=== PATIENT | female | born 1975 | race African-American/Black ===

== ENCOUNTER → 2017-04-10 | Outpatient (CLI) | payer OTHER ==
[2017-04-10 15:33] LABS: ADD MAN DIFF? NO
[2017-04-10 15:37] LABS: BASO % 1 % (0-3); EOS # 0.1 x10^3/uL (0.0-0.7); EOS % 1 % (0-3); HEMATOCRIT 37.3 % (36.0-47.0); HEMOGLOBIN 11.9 g/dL (12.0-15.5); LYMPH # 1.6 x10^3/uL (1.0-4.8); LYMPH % 39 % (24-48); MEAN CORPUSCULAR HEMOGLOBIN 22 pg (25-35); MEAN CORPUSCULAR HGB CONC 32 g/dL (31-37); MEAN CORPUSCULAR VOLUME 69 fL (79-100); MONO # 0.5 x10^3/uL (0.0-1.1); MONO % 12 % (0-9); NEUT # 1.9 x10^3uL (1.8-7.7); NEUT % 47 % (31-73); PLATELET COUNT 225 x10^3/uL (140-400); RED BLOOD COUNT 5.39 x10^6/uL (3.50-5.40); RED CELL DISTRIBUTION WIDTH 14.1 % (11.5-14.5); WHITE BLOOD COUNT 4.1 x10^3/uL (4.0-11.0)
[2017-04-10 15:57] LABS: ALBUMIN 3.8 g/dL (3.4-5.0); ALK PHOS 64 U/L (46-116); ALT (SGPT) 16 U/L (14-59); ANION GAP 8 (6-14); AST (SGOT) 11 U/L (15-37); BLOOD UREA NITROGEN 7 mg/dL (7-20); BUN/CREATININE RATIO 10 (6-20); CALCIUM 8.6 mg/dL (8.5-10.1); CARBON DIOXIDE 29 mmol/L (21-32); CHLORIDE 103 mmol/L (98-107); CHOLESTEROL 145 mg/dL (0-200); CHOLESTEROL/HDL RATIO 1.6; CREATININE 0.7 mg/dL (0.6-1.0); GFR 112.7; GLUCOSE 90 mg/dL (70-99); HDLC 89 mg/dL (40-60); LDLC 51 mg/dL (0-100); NON-HDL CHOLESTEROL 56 mg/dL (0-129); POTASSIUM 3.8 mmol/L (3.5-5.1); SODIUM 140 mmol/L (136-145); TOTAL BILIRUBIN 0.4 mg/dL (0.2-1.0); TOTAL PROTEIN 7.7 g/dL (6.4-8.2); TRIGLYCERIDES 25 mg/dL (0-150); VLDLC 5 mg/dL (0-40)
[2017-04-10 16:05] LABS: FREE T4 1.12 ng/dL (0.76-1.46)
[2017-04-10 20:23] LABS: CRENATED RBC PRESENT; OVALOCYTES OCC; PLT ESTIMATE ADEQUATE (ADEQUATE); POLYCHROMASIA SLIGHT; STOMATOCYTES OCC
== END | disposition home or self-care (01) ==
LOC: LAB 15:18
DX: E04.1 Nontoxic single thyroid nodule (principal); K21.9 Gastro-esophageal reflux disease without esophagitis; E55.9 Vitamin D deficiency, unspecified; R53.83 Other fatigue
CPT/HCPCS: 36415; 80053; 80061; 82306; 84439; 84443; 85025

== ENCOUNTER → 2017-05-20 | Outpatient (CLI) | payer OTHER ==
[2017-05-21 07:00] LABS: HCV ANTIBODY <0.1 s/co ratio (0.0-0.9); HEP A IGM ABDY Negative (Negative); HEP B SURFACE AG Negative (Negative); HIV ANTIBODY Non Reactive (Non Reactive)
== END | disposition home or self-care (01) ==
LOC: LAB 14:22
DX: Z20.2 Contact with and (suspected) exposure to infections with a predominantly sexual mode of transmission (principal); E55.9 Vitamin D deficiency, unspecified
CPT/HCPCS: 36415; 80074; 86703; 87491; 87591

== ENCOUNTER 2017-05-22 06:09 | Emergency (ER) | payer OTHER ==
[2017-05-22 06:53] LABS: ADD MAN DIFF? NO
[2017-05-22 06:53] LABS: URINE HCG POC HCG NEGATIVE (Negative)
[2017-05-22 06:58] LABS: BILIRUBIN,URINE NEGATIVE (NEG); CLARITY,URINE CLEAR; COLOR,URINE YELLOW; GLUCOSE,URINE NEGATIVE (NEG); NITRITE,URINE NEGATIVE (NEG); PH,URINE 6.5; PROTEIN,URINE NEGATIVE (NEG-TRACE); UROBILINOGEN,URINE 0.2 mg/dL (0.2 mg/dL)
[2017-05-22 07:14] LABS: BASO % 1 % (0-3); EOS # 0.1 x10^3/uL (0.0-0.7); EOS % 1 % (0-3); HEMATOCRIT 34.4 % (36.0-47.0); HEMOGLOBIN 11.1 g/dL (12.0-15.5); LYMPH # 2.2 x10^3/uL (1.0-4.8); LYMPH % 40 % (24-48); MEAN CORPUSCULAR HEMOGLOBIN 22 pg (25-35); MEAN CORPUSCULAR HGB CONC 32 g/dL (31-37); MEAN CORPUSCULAR VOLUME 68 fL (79-100); MONO # 0.6 x10^3/uL (0.0-1.1); MONO % 11 % (0-9); NEUT # 2.6 x10^3uL (1.8-7.7); NEUT % 47 % (31-73); PLATELET COUNT 217 x10^3/uL (140-400); RED BLOOD COUNT 5.05 x10^6/uL (3.50-5.40); RED CELL DISTRIBUTION WIDTH 14.1 % (11.5-14.5); WHITE BLOOD COUNT 5.5 x10^3/uL (4.0-11.0)
[2017-05-22 07:15] LABS: ANION GAP 6 (6-14); BLOOD UREA NITROGEN 1 mg/dL (7-20); CALCIUM 8.5 mg/dL (8.5-10.1); CARBON DIOXIDE 31 mmol/L (21-32); CHLORIDE 103 mmol/L (98-107); CREATININE 0.7 mg/dL (0.6-1.0); GFR 112.7; GLUCOSE 109 mg/dL (70-99); POTASSIUM 3.3 mmol/L (3.5-5.1); SODIUM 140 mmol/L (136-145)
[2017-05-22 07:16] LABS: ALK PHOS 73 U/L (46-116); ALT (SGPT) 20 U/L (14-59); AST (SGOT) 16 U/L (15-37); DIRECT BILIRUBIN 0.1 mg/dL (0.0-0.2); LIPASE 132 U/L (73-393); MAGNESIUM 1.9 mg/dL (1.8-2.4); TOTAL BILIRUBIN 0.2 mg/dL (0.2-1.0); TOTAL PROTEIN 7.5 g/dL (6.4-8.2)
[2017-05-22 07:17] LABS: TROPONINI < 0.017 ng/mL (0.000-0.055)
[2017-05-22 07:23] LABS: ALBUMIN 3.5 g/dL (3.4-5.0)
[2017-05-22 07:23] LABS: THYROID STIM HORMONE (TSH) 2.121 uIU/mL (0.358-3.74)
[2017-05-22 07:25] LABS: BACTERIA,URINE 0 /HPF (0-FEW); CREATINE KINASE 88 U/L (26-192); RBC,URINE 0 /HPF (0-2); SQUAMOUS EPITHELIAL CELL,UR FEW /LPF; WBC,URINE 0 /HPF (0-4)
[2017-05-22 07:25] LABS: NT-PRO BNP 32 pg/mL (0-124)
[2017-05-22 07:26] LABS: CKMB MASS < 0.5 ng/mL (0.0-3.6)
[2017-05-22 07:27] LABS: PROTHROMBIN TIME PATIENT 12.7 SEC (11.7-14.0)
[2017-05-22 09:49] LABS: HYPOCHROMIA MOD; PLT ESTIMATE ADEQUATE (ADEQUATE)
[2017-05-22 09:50] LABS: MICROCYTOSIS MARKED; OVALOCYTES PRESENT; POIKILOCYTOSIS PRESENT
== END 2017-05-22 08:18 | disposition home or self-care (01) ==
LOC: ER 06:09
DX: J01.00 Acute maxillary sinusitis, unspecified (principal); K58.9 Irritable bowel syndrome, unspecified; Z88.2 Allergy status to sulfonamides
CPT/HCPCS: 36415; 71045; 80048; 80076; 81001; 81025; 82553; 83690; 83735; 83880; 84443; 84484; 85025; 85610; 93005; 99285-25